=== PATIENT | female | born 1970 | race Caucasian/White ===

== ENCOUNTER → 2017-05-16 | Outpatient (CLI) | payer BC, OTHER ==
--- NOTE | 2017-05-17 08:29 | RADIOLOGY IMAGING REPORT ---
FACILITY: [facility] - [place] PATIENT NAME: LESLEY MUNOZ : [id number] MR: [id number] V: [id number] EXAM DATE: ORDERING PHYSICIAN: YESICA QUAN TECHNOLOGIST: Ninfa Agustin PROCEDURE:BILATERAL DIGITAL SCREENING MAMMOGRAM WITH CAD ASSISTED INTERPRETATION AND 3D BREAST TOMOSYNTHESIS. COMPARISON:None. This is the patient's baseline mammogram. INDICATIONS:BASELINE FINDINGS: Mildly heterogeneous fibroglandular tissue is seen throughout the breasts. There are two nodular areas posterior to mid-nipple line on the right CC view, one in zone 2 and one in zone 3. These both appear to be in the upper portion of the left breast on the right MLO view. Right breast ultrasound is recommended. There is a focal area of increased density in the upper portion of the right breast on the right MLO view zone 2 and in the medial portion of the left breast in the left CC view for which spot compression view and right breast ultrasound is recommended. DIAGNOSTIC CATEGORY 0--INCOMPLETE: NEED ADDITIONAL IMAGING EVALUATION. RECOMMENDATIONS: ADDITIONAL MAMMOGRAPHIC VIEWS REQUIRED: BILATERAL BREASTS. ULTRASOUND: RIGHT BREAST. IMPRESSION: BI-RADS 0: Additional views of both breast and right breast ultrasound recommended as described above. Images were reviewed with R2CAD and 3D breast tomosynthesis. Dictated by: Elizabeth Cohen M.D. on 05/16/2017 at 16:33 Transcribed by: HAKEEM on 05/16/2017 at 18:04 Approved by: Elizabeth Cohen M.D. on 05/17/2017 at 8:28 [facility]
== END ==
LOC: MAMO 01:42
PROVIDERS: ATTEND Physician Assistant
DX: Z12.31 Encounter for screening mammogram for malignant neoplasm of breast (principal); R92.8 Other abnormal and inconclusive findings on diagnostic imaging of breast
CPT/HCPCS: 77063; 77067

== ENCOUNTER → 2017-05-25 | Outpatient (CLI) | payer BC ==
--- NOTE | 2017-05-30 08:48 | RADIOLOGY IMAGING REPORT ---
FACILITY: [facility] PATIENT NAME: LESLEY MUNOZ : [id number] MR: [id number] V: [id number] EXAM DATE: [id number] ORDERING PHYSICIAN: YESICA QUAN TECHNOLOGIST: Angella Pagan PROCEDURE:BILATERAL DIAGNOSTIC DIGITAL MAMMOGRAM WITH CAD AND 3D BREAST TOMOSYNTHESIS. COMPARISON:Prior mammograms dated 05/16/17. INDICATIONS:FURTHER EVALUATION FINDINGS: The patient returns for medial lateral view of the left breast, spot compression views in the left CC and MLO projections and rolled left CC views in addition to a spot compression view in the right MLO projection. Today's right breast ultrasound did demonstrate two small cysts in the 9 o'clock position which likely account for the mammographic findings. There is a persistent ovoid, slightly irregular area of increased density in the approximate 9 o'clock position of the left breast. Today's left breast ultrasound did demonstrate a slightly irregular hypoechoic nodule in the 9 o'clock position which likely accounts for this finding. Given the solid nature, ultrasound guided core biopsy is recommended. A post-biopsy clip with post-biopsy mammogram on the left is also recommended to confirm that the sonographic findings correlate with the mammographic findings. DIAGNOSTIC CATEGORY 4--SUSPICIOUS FOR MALIGNANCY. RECOMMENDATIONS: ULTRASOUND-GUIDED CORE BIOPSY: LEFT BREAST. IMPRESSION: BI-RADS 4: Ultrasound guided core biopsy of the hypoechoic nodule in the 9 o'clock position of the left breast recommended with post-biopsy clip placement and mammogram as described above. Images were reviewed with R2CAD and 3D breast tomosynthesis. Dictated by: Elizabeth Cohen M.D. on 05/25/2017 at 14:06 Transcribed by: HAKEEM on 05/25/2017 at 19:39 Approved by: Elizabeth Cohen M.D. on 05/30/2017 at 8:47 [facility]
--- NOTE | 2017-05-30 08:49 | RADIOLOGY IMAGING REPORT ---
FACILITY: [facility] PATIENT NAME: LESLEY MUNOZ : [id number] MR: [id number] V: [id number] EXAM DATE: [id number] ORDERING PHYSICIAN: YESICA QUAN TECHNOLOGIST: Billie Lynch PROCEDURE:BILATERAL BREAST ULTRASOUND COMPARISON:Diagnostic mammogram performed today. INDICATIONS:FURTHER CHRISTINA.UATION FINDINGS: In the 9 o'clock position of the right breast there are two small cysts measuring 6.5 mm in diameter and 5.7 mm in diameter which likely account for the mammographic findings. In the 9 o'clock position of the left breast there is a polylobular slightly irregular hypoechoic nodule measuring 7.5 x 4.3 x 12.7 mm. Due to the slightly irregular margins, ultrasound guided core biopsy is recommended with post-biopsy clip placement and mammogram to assure the mammographic findings correlate with the sonographic findings. DIAGNOSTIC CATEGORY 4--SUSPICIOUS FOR MALIGNANCY. RECOMMENDATIONS: ULTRASOUND-GUIDED CORE BIOPSY: LEFT BREAST. IMPRESSION: BI-RADS 4: Ultrasound guided core biopsy of the slightly irregular hypoechoic nodule in the 9 o'clock position of the left breast recommended as detailed above. Dictated by: Elizabeth Cohen M.D. on 05/25/2017 at 14:08 Transcribed by: HAKEEM on 05/25/2017 at 19:46 Approved by: Elizabeth Cohen M.D. on 05/30/2017 at 8:47 [facility]
== END ==
LOC: MAMO 01:19
PROVIDERS: ATTEND Physician Assistant
DX: N63.22 Unspecified lump in the left breast, upper inner quadrant (principal)
CPT/HCPCS: 76641; 77062; 77066

== ENCOUNTER → 2017-05-29 | Outpatient (CLI) | payer BC | LOC: LAB 16:44 | PROVIDERS: ATTEND Physician Assistant | DX: Z01.812 Encounter for preprocedural laboratory examination (principal) | CPT/HCPCS: 36415; 85610 ==

== ENCOUNTER → 2017-05-31 | Outpatient (CLI) | payer BC ==
--- NOTE | 2017-06-02 11:41 | RADIOLOGY IMAGING REPORT ---
FACILITY: [facility] - [place] PATIENT NAME: LESLEY MUNOZ : [id number] MR: [id number] V: [id number] EXAM DATE: [id number] ORDERING PHYSICIAN: YESICA QUAN TECHNOLOGIST: Billie Lynch PROCEDURE: BIOPSY LEFT BREAST COMPARISON: None. INDICATIONS: LT BREAST MASS FINDINGS: Informed consent was obtained. The patient's left breast was prepped & draped in the usual sterile fashion. Local anesthesia was accomplished with 1% Lidocaine. Under Sonographic guidance 2 12 Gauge core biopsies were obtained through the hypoechoic mass in the 9 o'clock position of the left breast. Samples were placed in formalin, shown to the patient & sent to the laboratory for evaluation. A biopsy clip was placed in the biopsy site. A post Ultrasound biopsy mammogram demonstrated the biopsy clip to be located in the ovoid area of increased density in the medial inferior portion of the left breast which corresponds to the area of concern on the prior mammogram. Pathology results are pending. IMPRESSION: 1. Successful Ultrasound guided biopsy of the hypoechoic nodule 9 o'clock position of the left breast. Dictated by: Elizabeth Cohen M.D. on 05/31/2017 at 16:38 Transcribed by: REGINA on 06/02/2017 at 11:00 Approved by: Elizabeth Cohen M.D. on 06/02/2017 at 11:39 [facility]
--- NOTE | 2017-06-02 11:41 | RADIOLOGY IMAGING REPORT ---
FACILITY: [facility] - [place] PATIENT NAME: LESLEY MUNOZ : [id number] MR: [id number] V: [id number] EXAM DATE: [id number] ORDERING PHYSICIAN: YESICA QUAN TECHNOLOGIST: Billie Lynch PROCEDURE: BIOPSY LEFT BREAST COMPARISON: None. INDICATIONS: LT BREAST MASS FINDINGS: Informed consent was obtained. The patient's left breast was prepped & draped in the usual sterile fashion. Local anesthesia was accomplished with 1% Lidocaine. Under Sonographic guidance 2 12 Gauge core biopsies were obtained through the hypoechoic mass in the 9 o'clock position of the left breast. Samples were placed in formalin, shown to the patient & sent to the laboratory for evaluation. A biopsy clip was placed in the biopsy site. A post Ultrasound biopsy mammogram demonstrated the biopsy clip to be located in the ovoid area of increased density in the medial inferior portion of the left breast which corresponds to the area of concern on the prior mammogram. Pathology results are pending. IMPRESSION: 1. Successful Ultrasound guided biopsy of the hypoechoic nodule 9 o'clock position of the left breast. Dictated by: Elizabeth Cohen M.D. on 05/31/2017 at 16:38 Transcribed by: REGINA on 06/02/2017 at 11:00 Approved by: Elizabeth Cohen M.D. on 06/02/2017 at 11:39 [facility]
== END ==
LOC: US 00:50
PROVIDERS: ATTEND Physician Assistant
DX: D24.2 Benign neoplasm of left breast (principal)
CPT/HCPCS: 19083; 77065; 88305; 88344

== ENCOUNTER → 2017-12-18 | Outpatient (CLI) | payer SELFPAY ==
--- NOTE | 2017-12-18 17:19 | RADIOLOGY IMAGING REPORT ---
FACILITY: [facility] - [place] PATIENT NAME: Sherri Kennedy : 1970 MR: [id number] V: [id number] EXAM DATE: ORDERING PHYSICIAN: MARCELINO RAM TECHNOLOGIST: [facility] Patient: Sherri Kennedy : 1970 Visit/Account:[id number] Date of Sevice: 12/18/2017 HAND COMPLETE RIGHT Indication: Fall yesterday, right hand, third digit injury. Comparison: None. Findings: The phalanges, metacarpal, and carpal bones are intact. Soft tissues are normal. Joint spac es are smooth. IMPRESSION: Normal right hand radiograph. No evidence of fracture. Report Dictated By: Anselmo De La Cruz at 12/18/2017 5:15 PM Report E-Signed By: Anselmo De La Cruz at 12/18/2017 5:16 PM WSN:[id number]
== END ==
LOC: RAD 11:40
PROVIDERS: ATTEND Physician Assistant Medical
DX: M25.441 Effusion, right hand (principal)